=== PATIENT | male | born 1940 | race Caucasian/White ===

== ENCOUNTER 2016-10-25 16:21 | Observation (INO) ==
[2016-10-25] MEDS: PANTOPRAZOLE 40 MG TABLET PO SCH (19:00)
[2016-10-25] MEDS: SODIUM BICARB INJ 50 MEQ in SODIUM CHLORIDE 0.45% 1,000 ML IV SCH (19:07)
[2016-10-25] MEDS: LISINOPRIL 10 MG TABLET PO SCH (21:56)
[2016-10-26 06:18] LABS: Basophils # 0.1 10*3/uL (0.0-0.2); Basophils % 0.6 % (0.0-0.8); Eosinophils # 0.2 10*3/uL (0.0-0.87); Eosinophils % 1.6 % (0.00-10.9); Hematocrit 37.9 VOL% (42.0-52.0); Hemoglobin 12.4 GM/DL (14.0-18.0); Immature Granulocytes % 0.9 %; Immature Granulocytes Absolute 0.11 #; Lymphocytes # 2.4 10*3/uL (1.4-4.0); Lymphocytes % 19.9 % (21.2-54.2); Mean Corpuscular HGB Conc 32.7 GM/DL (32-36); Mean Corpuscular Hemoglobin 28 PG (27-34); Mean Corpuscular Volume 84.4 FL (87-102); Mean Platelet Volume 11.6 FL (9.6-12.0); Monocytes # 1.1 10*3/uL (0.11-0.8); Monocytes % 8.8 % (1.7-12.7); Neutrophils # 8.2 10*3/uL (1.4-7.4); Neutrophils % 68.2 % (38.7-73.9); Platelet Count 206 T/CUMM (130-400); Red Blood Count 4.49 MC/CUMM (3.8-5.5); Red Cell Distribution Width 16.3 % (9.3-17.3)
[2016-10-26 06:48] LABS: Calcium 8.9 MG/DL (8.5-10.1); Osmolality,Calculated 283.3 MOS/KG (273-304); Potassium 3.5 MMOL/L (3.5-5.1)
--- NOTE | 2016-10-26 06:53 | History and Physical Update ---
Sedation H&P Update - History and Physical H&P was reviewed, the patient examined and there: are no changes in the patients condition since last H&P was completed. - Dictation Physical: refer to H&P completed by admitting physician - Physical Exam Mental Status: alert and oriented Heart: regular rate and rhythm Lung: clear to auscultation Abdomen: within normal limits Vitals: within normal limits - Sedation Plan for Sedation: moderate Patient Consent: Procedure disscussed with patient and patinet has consented., Risks and benefits were discussed with patient,including infection,, bleeding, injury to surrounding structures, seizure, temporary nerve, Patient understands and accepts potential risks/benefits and agrees to, proceed. ASA Class: IV Airway Assessment: Class II: Soft palate, uvula, fauces visible
[2016-10-26] MEDS ORDERED: DIAZEPAM 5 MG TABLET PO ONE (07:00)
[2016-10-26] MEDS ORDERED: diphenhydrAMINE CAP 25 MG CAPSULE PO ONE (07:00)
[2016-10-26] MEDS: LISINOPRIL 10 MG TABLET PO SCH ×2 (09:31→22:20)
[2016-10-26] MEDS: ASPIRIN EC 81 MG TABLET PO SCH (09:31)
[2016-10-26] MEDS: PANTOPRAZOLE 40 MG TABLET PO SCH (09:31)
[2016-10-26] MEDS: SODIUM BICARB INJ 50 MEQ in SODIUM CHLORIDE 0.45% 1,000 ML IV SCH ×2 (09:32→23:05)
--- NOTE | 2016-10-26 10:40 | XRay Report ---
XR chest 2V Date: 10/26/2016 4:00 PM History: Chest pain Comparison: 09/25/2015 Technique: PA and lateral chest Findings: The heart is smaller in size with left subclavian atrioventricular permanent pacemaker. Decreased parenchymal findings with. Small pleural effusions. Coronary artery calcifications/stents noted. Stable mediastinum and osseous structures. Impression: Improved CHF with coronary artery calcifications/stents. Left subclavian atrioventricular permanent pacemaker. Underlying COPD with chronic scarring. PROCEDURE INTERPRETED AT [facility] DEPARTMENT OF RADIOLOGY Final Report Signed by: Dr. Belle Azevedo
[2016-10-26] MEDS ORDERED: LIDOCAINE 1% 20 ML VIAL ONE (12:14)
[2016-10-26] MEDS ORDERED: HEPARIN/NACL 0.9% 2 UNITS/ML 1,000 ML IV ONE (12:14)
[2016-10-26] MEDS ORDERED: fentaNYL 100 MCG/2 ML VIAL ONE (12:46)
[2016-10-26] MEDS ORDERED: MIDAZOLAM 2 MG/2 ML VIAL ONE (12:46)
[2016-10-26] MEDS ORDERED: HEPARIN 5,000 UNIT/1 ML VIAL ONE ×2 (13:05→13:07)
[2016-10-26] MEDS ORDERED: NITROGLYCERIN DRIP 50 MG/250 ML BOTTLE IV ONE (13:08)
[2016-10-26] MEDS ORDERED: ADENOSINE 90 MG/30 ML VIAL IV ONE (13:31)
[2016-10-26] MEDS ORDERED: ACETAMINOPHEN 325 MG TABLET PO PRN (14:03)
--- NOTE | 2016-10-26 14:22 | Cardiac Catheterization ---
Date of Procedure:: 10/26/16 Pre-op Diagnosis: Aortic stenosis and known coronary disease anticipation of TAVR Post-op diagnosis: other (No high-grade epicardial stenosis, moderate left main and RCA disease. Previously deployed stent in the LAD is widely patent) Procedure: Procedures: 1. Selective left and right coronary angiography 2. Intravascular ultrasound of the ostial proximal RCA 3. Fractional flow reserve assessment of the proximal RCA 4. Right femoral iliac angiography 5. Left femoral iliac angiography After consent was taken from the patient. Taken to the catheterization lab for left heart catheterization via the femoral artery. Time out was taken and recorded. 1% lidocaine was infiltrated in the skin and subcutaneous tissue overlying the right femoral artery. Modified Seldinger technique and an 18- gauge Xormis needle was used for access to the right femoral artery. An 0.35 J- wire was advanced through the needle into the central aorta under fluoroscopy. A small skin was made and a 6 Ukrainian sheath was placed over the wire. The sheath was aspirated and flushed. A JL46 was advanced over the wires in the left main coronary artery was selectively engaged. Multiple orthogonal views of the left system were obtained. The catheter was then exchanged over the wire. The sheath was aspirated and flushed. A JR4 catheter was advanced over the wire into the central aorta. The right coronary was selectively engaged and orthogonal views of the right coronary artery were obtained. The catheter was then exchanged over the wire, the sheath was aspirated and flushed. The valving machine operator reviewed the films. Due to the equivocal nature of the ostial calcified lesion in the right coronary artery further imaging was felt to be necessitated. The room was set up for office. The patient was given 7000 units of heparin and the ACT was 251 seconds. At this time a JR4 guide was advanced over the wire in the central aorta the right coronary was selectively engaged with a ease a 180 cm [employer] pro-water wire was advanced into the distal right coronary artery this was followed by 200 mcg of intracoronary nitroglycerin and I this assessment 3 of the proximal and ostial RCA. There appeared to be no high-grade stenosis but approximately 180 arc of calcium in the proximal RCA there was a very small area that was less than 2 mm at the office that was still suspect. There was no calcium in this area. 3 runs were performed and it still was equivocal. At this time the room was set up for fractional flow reserve assessment and the pro-water wire was removed and the wave wire was advanced into the mid RCA. At this time adenosine infusion at 140 mcg/kg/min was initiated. The patient's systolic blood pressure dropped from the 140s to 85 mmHg and the worse demonstrable fractional flow ratio was 0.94. At rest this ratio was 0.98. The wire was removed the patient's blood pressure was allowed to recover. He was paced from his by the pacer. He is blood pressure returned to its baseline shortly after the adenosine was discontinued. The catheter was exchanged over the wire. The sheath was aspirated and flushed. At this time the previously used JR4 diagnostic catheter was advanced to the bifurcation and a selective injection down the left iliac was used to visualize the left iliac and femoral arteries to the level of the fovea. The catheter was then exchanged over the wire The sheath was aspirated and flushed and a right femoral and iliac angiography was performed. The access site was amenable for closure and the area was reprepped with ChloraPrep and draped with sterile towels. Multiple attempts to use a minx closure device were unsuccessful due to rupture of the balloon on the calcium and stents in the right femoral iliac. An ACT was checked and manual compression was used for hemostasis. There is no apparent complication of the procedure. The patient awakened I discussed with him. Also discussed with his 2 sons in the waiting room of the Duty Officer. Total diagnostic fluoroscopy time 6.5 minutes total fluoroscopy dose 492 mGy. Total contrast exposure 110 cc of Omnipaque FINDINGS: Ao: 155/73 EF: Not assessed LM: This is a very large vessel. The distal segment is very large and trifurcates there is an area that appears to be 40% or less in the body of this vessel. LAD: This vessel is diffusely diseased with mild to moderate areas of stenosis. There is no high-grade epicardial stenosis. The previously deployed stent in the distal vessel is widely patent with no lumen loss LCx: This is a nondominant vessel. There is mild disease in the obtuse marginal which is basically the only contribution that it has to the left ventricule. Ramus Intermedius: There is a moderate size ramus intermedius has no significant stenosis RCA: This is a dominant vessel. There is moderate calcification throughout the vessel particularly at the office angiographically it appears to have possibly moderate to high-grade stenosis. There is blowback that appears to be very eccentric. There was no damping with engagement of this vessel and a 6 Ukrainian catheter. The area had eccentric calcification in approximately 180 dense calcific vessel. There is no high-grade stenosis clearly demonstrated by I have S there is a very questionable extreme ostial narrowing without calcification which I felt was artifact however it appeared to hug the IVUS catheter and I felt further testing was needed. Fractional flow reserve assessment with drop in systolic pressure to the mid 80s demonstrated worst possible FFR ratio of 0.94. This ratio was 0.98 at rest. RFA/SOILA: This vessel was imaged and has previous stent and calcification no high -grade stenosis. For whatever reason the images did not save to the PACS. The left femoral iliac arteries have no high-grade epicardial stenosis and very large the had no significant tortuosity. Assessment: 1. Severe aortic stenosis 2. Moderate epicardial coronary disease as described above with fractional flow reserve assessment of the ostium of the RCA as described. 2. Peripheral vessel disease as described above PLAN: 1. Monitor on the floor for complications of access. Also check recheck labs in the morning for his renal insufficiency. 2. I discussed with Dr. Duke at [facility] and films will be sent for him to review. Implants: None Anesthesia: moderate conscious sedation Surgeon / Physician: Jessica Galvez Business Loan Processor: none Estimated blood loss: none Specimens: none sent Condition: stable Disposition: floor - Medications / Follow-up
--- NOTE | 2016-10-26 14:56 | EKG Report ---
Stationary ECG Study [facility] Test Date: 10/26/2016 2:54:58 PM Pat Name: AMANDO SHORT Department: Room: 280 Gender: M Social Worker School: [employer] : 1940 Requested by: Alfredo Otero Order Number: [id number] Reading MD: GRAHAM VERA Intervals [place] Rate: 83 P: -78 TN: 230 QRS: 204 QRSD: 151 T: 44 QT: 465 QTc: 504 Interpretive Statements ELECTRONIC VENTRICULAR PACEMAKER ATRIAL FIBRILLATION Electronically Signed On 10-27-16 15:51:36 CDT by GRAHAM VERA [email or web address]
[2016-10-26 16:04] LABS: Calcium 8.7 MG/DL (8.5-10.1); Osmolality,Calculated 282.3 MOS/KG (273-304); Potassium 3.7 MMOL/L (3.5-5.1)
[2016-10-27 05:58] LABS: Basophils % 0.3 % (0.0-0.8); Eosinophils # 0.1 10*3/uL (0.0-0.87); Eosinophils % 0.9 % (0.00-10.9); Hematocrit 37.4 VOL% (42.0-52.0); Hemoglobin 12.3 GM/DL (14.0-18.0); Immature Granulocytes % 0.6 %; Immature Granulocytes Absolute 0.08 #; Lymphocytes # 1.6 10*3/uL (1.4-4.0); Lymphocytes % 11.3 % (21.2-54.2); Mean Corpuscular HGB Conc 32.9 GM/DL (32-36); Mean Corpuscular Hemoglobin 28 PG (27-34); Mean Corpuscular Volume 84.2 FL (87-102); Mean Platelet Volume 11.5 FL (9.6-12.0); Monocytes # 1.2 10*3/uL (0.11-0.8); Monocytes % 8.4 % (1.7-12.7); Neutrophils # 10.7 10*3/uL (1.4-7.4); Neutrophils % 78.5 % (38.7-73.9); Platelet Count 188 T/CUMM (130-400); Red Blood Count 4.44 MC/CUMM (3.8-5.5); Red Cell Distribution Width 16.3 % (9.3-17.3); White Blood Count 13.7 T/CUMM (4-12)
--- NOTE | 2016-10-27 07:12 | Discharge Summary ---
Hospital Course - Hospital Course Hospital Course: The patient was preadmitted to the hospital on 10/25/2016 for hydration and bicarb infusion in anticipation of contrast exposure on 10/26/2016 for selective left and right coronary angiography. The patient is scheduled for TAVR on 2016 at [facility] by Dr. Viv Duke. Left heart cath position was performed the patient's previously deployed stents in the left system were good he had moderate left main disease he has an ostial highly calcified lesion angiographically potentially looked severe. It was further investigated with both IVUS and fractional flow reserve assessment. He was found to be not hemodynamically significant with a fractional flow reserve assessment of 0.94. Because the patient received contrast full dose anticoagulation he was held overnight and discharged on the a.m. of 10/27/2016 if his access site and creatinine were stable. His creatinine is still pending at this hour. He will be discharged if it is acceptable Diagnosis - Discharge Diagnosis (1) Essential hypertension Status: Chronic (2) Dyslipidemia Status: Chronic (3) Coronary artery disease Status: Chronic (4) Chronic renal failure Status: Chronic (5) History of atrial fibrillation Status: Chronic (6) Prostate cancer Status: Chronic (7) Aortic stenosis Status: Chronic (8) Cardiomyopathy Status: Chronic (9) Chronic renal insufficiency, stage II (mild) Status: Chronic (10) Anemia Status: Chronic (11) GI bleeding Status: Acute Specialty Discharge - Follow Up or Referrals Follow up with: Jessica Galvez DO [Physician] - 1 Month Discharge Plan - Discharge Data Disposition: Disch To Home/Self Care Condition at Discharge: Stable Discharge Diet: advance to your usual diet Activity: no lifting Hygiene: no restrictions, may shower Weight Bearing at Discharge: full weight bearing, weight bear as tolerated Driving: not until seen by doctor Contact your physician if you experience:: fever over 101, Difficulty voiding, Redness or swelling, Nausea/Vomiting, Shortness of breath, Bleeding, pain uncontrolled by pain medications - Discharge Medications Continue Aspirin [Ecotrin] 81 mg PO DAILY Lisinopril 10 mg PO BID Furosemide Tab [Lasix Tab] 80 mg PO BID DIURETIC #60 tablet Omeprazole [Prilosec] 20 mg PO DAILY Doxycycline Hyclate 100 mg PO BID Multivit-Min/FA/Lycopen/Lutein [Centrum Silver Men Tablet] 1 each PO DAILY - Follow Up or Referral Follow Up: Jessica Galvez DO [Physician] - 1 Month - Forms/Instructions Instructions: Left Heart Catheterization (DC), Aortic Stenosis (DC), Heart Healthy Diet (GEN) Exam - Constitutional Vitals: Period Temp Pulse Resp BP Sys/Dee Pulse Ox Last 24 Hr 97.2 F-98.8 F 79-82 16-20 153-187/77-99 92-97 General appearance: over weight - Head Head exam: Present: normal inspection - Eye Eye exam: Present: EOMI Pupils: Present: ERIC - ENT ENT exam: Present: normal exam - Neck Neck exam: Present: normal inspection - Respiratory Respiratory exam: Present: wheezes, other (Prolonged expiratory phase). Absent : rales, rhonchi - Cardiovascular Cardiovascular exam: Present: regular rate and rhythm (Patient has a murmur of aortic stenosis. He is lying flat on the bed he is chronically dyspneic) - GI/Abdominal GI/Abdominal exam: Present: normal bowel sounds - Extremities Exam Extremities exam: Present: normal inspection - Back Exam Back exam: Present: normal inspection - Neurological Exam Neurological exam: Present: alert, oriented X3 - Psychiatric Psychiatric exam: Present: normal affect, normal mood - Skin Skin exam: Present: normal color, warm, other (Access site looks good) Discharge Results Procedures and tests throughout hospitalization: Pending Orders 10/26/16 06:00 CL heart Routine Labs on day of discharge: Labs from last 24 hours 10/27/16 10/27/16 10/26/16 05:07 01:11 15:10 WBC 13.7 H RBC 4.44 Hgb 12.3 L Hct 37.4 L MCV 84.2 L MCH 28 MCHC 32.9 RDW 16.3 Plt Count 188 MPV 11.5 Neut % (Auto) 78.5 H Lymph % (Auto) 11.3 L [facility] % (Auto) 8.4 Eos % (Auto) 0.9 Baso % (Auto) 0.3 Neut # (Auto) 10.7 H Lymph # (Auto) 1.6 [facility] # (Auto) 1.2 H Eos # (Auto) 0.1 Baso # (Auto) 0.0 Immature Gran % 0.6 Nucleated RBC % 0.0 Immature Gran # 0.08 Nucleated RBCs # 0.00 Immature Plt Fraction 0.0 Sodium 141 Potassium 3.7 Chloride 101 Carbon Dioxide 36 H Anion Gap 7.7 BUN 19 H Creatinine 1.30 GFR Calculation 72 BUN/Creatinine Ratio 14.00 Glucose 99 POC Glucose 123 H Calculated Osmolality 282.3 Calcium 8.7 - Imaging and Cardiology Cardiology Procedure: image reviewed by me, report reviewed by me DS: Provider Date of admission: 10/25/2016 Primary care physician: Iftikhar Dhillon Attending physician on admission: Erica Consults: 10/26/16 14:04 Consult to Cardiac Rehabilitation [CONS] Routine Reason for Cardiac Rehabilitation: Risk Factor Modification Other Consult Comment: Evaluate and recommend Discharging clinician: Jessica Galvez DO Expected date of discharge: 10/27/16
[2016-10-27 08:09] VITALS: BP 192/90
[2016-10-27] MEDS: ASPIRIN EC 81 MG TABLET PO SCH (08:39)
[2016-10-27] MEDS: LISINOPRIL 10 MG TABLET PO SCH (08:39)
[2016-10-27] MEDS: PANTOPRAZOLE 40 MG TABLET PO SCH (08:39)
[2016-10-27] MEDS ORDERED: MULTIVITAMIN (CENTRUM) TABLET PO SCH (09:00)
[2016-10-27] MEDS ORDERED: DOXYCYCLINE HYCLATE 100 MG CAPSULE PO SCH (09:00)
[2016-10-27 09:35] LABS: Calcium 8.8 MG/DL (8.5-10.1); Osmolality,Calculated 280.5 MOS/KG (273-304); Potassium 3.8 MMOL/L (3.5-5.1)
== END 2016-10-27 10:46 | disposition home or self-care (01) ==
LOC: N.TELES 16:21 → N.TELEN 16:21 → N.SDSINP 16:21 → N.TELEN 17:16 → EDSTATUS 10-26 14:49 → N.CL 10-26 14:49
PROVIDERS: ADMIT Internal Medicine Cardiovascular Disease; ATTEND Internal Medicine Cardiovascular Disease